=== PATIENT | female | born 1990 | race Caucasian/White ===

== ENCOUNTER 2024-03-28 06:01 | Inpatient (IN) ==
[2024-03-28 09:17] LABS: Hematocrit 32.1 % (35-45); Hemoglobin 10.9 g/dL (11.5-14.3); Mean Corpuscular Hemoglobin 28.8 pg (27-33); Mean Corpuscular Hgb Conc 33.9 g/dL (31-36); Mean Platelet Volume 11.4 fL (7.5-11.2); Platelet Count 121 10^3/uL (150-450); Red Blood Count 3.78 10^6/uL (3.63-4.92); Red Cell Distribution Width 14.1 % (12-17)
[2024-03-28 09:40] LABS: Urine Benzodiazepine Screen None Detected (None Detect); Urine Cannabinoids Screen None Detected (None Detect); Urine Opiates Screen None Detected (None Detect)
[2024-03-28] MEDS ORDERED: Lidocaine 1% VIAL 10 MG/ML 30 ML VIAL INJ PRN (11:35)
[2024-03-28] MEDS ORDERED: Nalbuphine 10 MG/ML 1 ML VIAL IV PRN (11:35)
[2024-03-28] MEDS: miSOPROStol 100 mcg TAB PO PRN (12:14)
[2024-03-28] MEDS: Penicillin G Potassium IV 5,000,000 UNITS in NS 0.9% 100 ml BAG 100 ML IVPB ONE (12:24)
[2024-03-28] MEDS: Lactated Ringers 1000 ml BAG 1,000 ML IV ONE (12:25)
[2024-03-28] MEDS: Terbutaline INJ 1 MG/ML 1 ml VIAL SUBCUT ONE (14:51)
[2024-03-28] MEDS: Penicillin G Potassium IV 3,000,000 UNITS in NS 0.9% 100 ml BAG 100 ML IVPB SCH (16:22)
[2024-03-28] MEDS: OBEPIDURAL (200 ML) 200 ML EPIDURAL ONE (19:08)
[2024-03-28 20:29] LABS: Urine Appearance Clear; Urine Bilirubin Negative (Negative); Urine Blood Negative (Negative); Urine Color Light-Yellow; Urine Glucose Negative (Negative); Urine Ketones Negative (Negative); Urine Nitrite Negative (Negative); Urine Protein Negative (Negative); Urine Specific Gravity 1.017 (1.002-1.030); Urine Urobilinogen Negative (Negative)
[2024-03-28 20:42] LABS: Urine Benzodiazepine Screen None Detected (None Detect); Urine Cannabinoids Screen None Detected (None Detect); Urine Opiates Screen None Detected (None Detect)
[2024-03-28] MEDS: Phenylephrine 40 mcg/mL 10mL (400mcg) SYRINGE IV PUSH PRN (20:54)
[2024-03-28] MEDS: Buffered Lidocaine 1% SYRIN 1 ml INTRADERM ONE (22:39)
[2024-03-28] MEDS: ceFOXitin 2 GM IVPREMIX 2 GM/50 ML BAG ONE (22:39)
[2024-03-28] MEDS: Sodium Citrate/Citric Acid LIQ 15 ML UDC ONE (22:40)
[2024-03-28] MEDS ORDERED: Lidocaine 2% w/ EPI 1:200,000 MPF 20 ML SDV VIAL ONE (23:05)
[2024-03-28] MEDS ORDERED: Dexamethasone IV 4 MG/ML VIAL 1 ml VIAL ONE (23:22)
[2024-03-28] MEDS ORDERED: Ondansetron 4 mg VIAL 2 MG/ML 2 ml VIAL ONE (23:22)
[2024-03-28] MEDS ORDERED: Oxytocin 10 UNITS/ML 1 ML VIAL ONE (23:30)
[2024-03-28] MEDS ORDERED: Morphine PF AMP (0.5MG/ML) 5 MG/10 ML AMP ONE (23:36)
[2024-03-28] MEDS ORDERED: Lidocaine 2% PF 10 ML AMP (OR) ONE (23:55)
[2024-03-29] MEDS: ceFOXitin 2 GM IVPREMIX 2 GM/50 ML BAG IVPB ONE (00:11)
[2024-03-29] MEDS ORDERED: Oxytocin 10 UNITS/ML 1 ML VIAL ONE (00:12)
[2024-03-29] MEDS ORDERED: Phenylephrine 40 mcg/mL 10mL (400mcg) SYRINGE IV PUSH PRN (00:35)
[2024-03-29] MEDS ORDERED: Sodium Citrate/Citric Acid LIQ 15 ML UDC PO PRN (00:35)
[2024-03-29] MEDS ORDERED: Ondansetron 4 mg VIAL 2 MG/ML 2 ml VIAL IV PRN (00:35)
[2024-03-29] MEDS ORDERED: Naloxone 0.4 mg VIAL 0.4 mg/ml 1 ml VIAL IV PUSH PRN (00:35)
[2024-03-29] MEDS ORDERED: Metoclopramide 5 MG/ML VIAL (10 mg) IV PRN (00:35)
[2024-03-29] MEDS ORDERED: Witch Hazel PAD JAR TOPICAL PRN (00:37)
[2024-03-29] MEDS ORDERED: Glycerin ADULT 2.4 gm SUPP PR PRN (00:37)
[2024-03-29] MEDS ORDERED: Lactated Ringers 1000 ml BAG 1,000 ML IV SCH (01:00)
[2024-03-29] MEDS: Acetaminophen IV 1 GM/100ML 1,000 MG/100 ML BAG IV PRN (01:01)
[2024-03-29] MEDS: OBEPIDURAL (200 ML) 200 ML EPIDURAL SCH (02:59)
[2024-03-29] MEDS: Oxytocin in LR 20,000 MILLI.UNIT/1,000 ML BAG IV SCH (04:43)
[2024-03-29] MEDS: Lactated Ringers 1000 ml BAG 1,000 ML IV ONE (07:29)
[2024-03-29] MEDS: Phenylephrine 40 mcg/mL 10mL (400mcg) SYRINGE ONE (07:29)
[2024-03-29] MEDS: Lidocaine 1.5% EPI 1:200,000 30 ML SDV ONE (07:29)
[2024-03-29] MEDS: RHO D Immune Globulin (HUMAN) 300 MCG = 1,500 I.U. INJ IM PRN (11:39)
[2024-03-29 12:38] LABS: RPR Nonreactive (Nonreactive)
[2024-03-29] MEDS: Lactated Ringers 1000 ml BAG 1,000 ML IV SCH (14:52)
[2024-03-30 06:43] LABS: ABS Eosinophils 0.2 10^3/uL (0.0-0.5); ABS Lymphocytes 2.6 10^3/uL (1.0-4.8); ABS Monocytes 0.6 10^3/uL (0.0-0.9); ABS Neutrophils 6.5 10^3/uL (1.5-7.6); Hematocrit 25.7 % (35-45); Hemoglobin 9.1 g/dL (11.5-14.3); Lymphocyte % 25.8 %; Mean Corpuscular Hemoglobin 30.3 pg (27-33); Mean Corpuscular Hgb Conc 35.3 g/dL (31-36); Mean Corpuscular Volume 85.8 fL (80-97); Platelet Count 110 10^3/uL (150-450); Red Blood Count 2.99 10^6/uL (3.63-4.92); Red Cell Distribution Width 14.4 % (12-17)
[2024-03-30 19:10] VITALS: BP 123/58
[2024-04-01 15:45] LABS: T.Pallidum TP-PA Negative (Negative)
== END 2024-03-31 12:02 | disposition home or self-care (01) | DRG 540 ==
LOC: MCHOBOUT 06:01 → MCHOB 07:58
PROVIDERS: ADMIT Obstetrics & Gynecology; ATTEND Obstetrics & Gynecology